=== PATIENT | male | born 1945 | race Caucasian/White ===

== ENCOUNTER 2017-04-15 08:05 | Outpatient (CLI) | payer MEDICARE, OTHER ==
[2015-10-17 22:29] VITALS: BP 143/70
== END 2017-04-15 08:06 ==
LOC: LAB 08:05
PROVIDERS: ATTEND Internal Medicine Gastroenterology
DX: Z79.01 Long term (current) use of anticoagulants (principal); Z01.812 Encounter for preprocedural laboratory examination
CPT/HCPCS: 36415; 85610

== ENCOUNTER 2017-04-15 08:46 | Day surgery (SDC) | payer MEDICARE, OTHER ==
[2015-10-17 22:29] VITALS: BP 143/70
[~2017-04-15 08:46] MED LIST: LACTATED RINGERS 1,000 ML IV.SOLN IV ONE; LIDOCAINE HCL/PF 2% 100 MG/5 ML VIAL IJ ONE; PROPOFOL 200 MG/20 ML VIAL IV ONE; SALINE FLUSH 10 ML DISP.SYRIN IVF ONE
--- NOTE | 2017-04-15 13:44 | GI Report ---
REFERRING PHYSICIAN: Dr. Mason Marroquin DRAFTER CIVIL: Chad Cuellar MD PROCEDURE MEDICATION: Propofol as per anesthesia. INDICATIONS: Patient is a 72-year-old man with a history of a previous fundoplication. 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 He has had a number of episodes of dysphagia for solids and liquids, particularly cold liquids. He denies much heartburn or indigestion. He is on ranitidine b.i.d. He is referred for the above indications. PROCEDURE PERFORMED: Endoscopy with biopsies and esophageal dilatation. PROCEDURE: An Olympus video endoscope was passed through the esophagus without difficulty. The patient has obvious short-segment Phillip's. It comes up at least 3 cm to the GE junction. We did take biopsies. The patient does have a slight tightness at the junction. Retroflexion shows the wrap still in place. The patient has significant bile gastritis in the stomach. Duodenal bulb is open, first and second part of the duodenum were examined. A guidewire was placed in the stomach. Endoscope was removed and a 48-Ethiopian, which is 16 mm, passed with slight resistance. The endoscope was reintroduced. There was a little friability where the stricture was stretched. The patient tolerated the procedure well. FINDINGS: 1. Phillip's esophagus, biopsied. 2. Stricture dilated to a 48-Ethiopian. 3. Fundoplication is still in place. 4. Significant bile gastritis. RECOMMENDATIONS: 1. I recommend he be on a PPI like omeprazole before breakfast and supper rather than the H2 amaris. 2. Always take an antacid at bedtime like Gaviscon because of the bile gastritis. 3. Sleep with the bed elevated. 4. Avoid cold liquids with meals. cc: Dr. Mason TYLER
== END 2017-04-15 08:47 ==
LOC: OPSURG 08:46
PROVIDERS: ATTEND Internal Medicine Gastroenterology
DX: K22.70 Barrett's esophagus without dysplasia (principal); K22.2 Esophageal obstruction; K29.70 Gastritis, unspecified, without bleeding; R13.10 Dysphagia, unspecified
CPT/HCPCS: 43248; J2001; J2704; J7120; S1016

== ENCOUNTER 2017-11-13 15:19 | Emergency (ER) | payer MEDICARE, OTHER ==
--- NOTE | 2017-11-13 15:45 | ED Physician Documentation ---
General Adult - HISTORIAN Historian: patient - HPI Stated Complaint: fall Chief Complaint: General Adult Onset: minutes Timing: still present Severity: moderate Further Comments: yes (Pt is a 72 yo male who tripped and fell while trying to carry another family member's wheelchair down the stairs. Pt fell and sustained multiple abrasions and skin tears on his extremities. Pt denies striking his head or injuring his neck. Pt has no bone or joint pain. Pt is on anticoagulant. Pt has large hematoma on L calf. Tetanus is utd.) - ROS CONST: no problems EYES/ENT: none CVS/RESP: none GI/: none MS/SKIN/LYMPH: other (multiple abrasions/skin tears) - PAST HX Past History: other (Afib, HLD, HTN, CAD, Phillip's Esophagus, chronic neck pain ) Surgeries/Procedures: none Allergies/Adverse Reactions: Allergies Allergy/AdvReac Type Severity Reaction Status Date / Time codeine AdvReac Chest Pain Verified 11/13/17 16:00 meperidine HCl [From Demerol] AdvReac Chest Pain Verified 11/13/17 16:00 Home Medications: Ambulatory Orders Medication Instructions Recorded Aspirin [Nicole] 81 mg PO DAILY 02/24/15 Diphenhydramine HCl [Allergy 25 mg PO DAILY 02/24/15 Relief] Hydroxyzine Pamoate [Vistaril] 25 mg PO PRN PRN 02/24/15 Loperamide HCl [Imodium A-D] 4 mg PO BID 02/24/15 Tramadol HCl [Tramadol HCl] 50 mg PO PM 02/24/15 Warfarin Sodium [Warfarin Sodium] 3 mg PO [id number] 02/24/15 Cholecalciferol [Vitamin D-3] 1 tab PO D 10/17/15 Ranitidine HCl [Ranitidine HCl] 1 tab PO BID 10/17/15 Acetaminophen [Tylenol] 650 mg PO D 11/13/17 Amlodipine/Atorvastatin [Caduet 5 1 each D 11/13/17 mg-10 mg Tablet] Cephalexin [Keflex] 11/13/17 Cephalexin [Keflex] 500 mg D 11/13/17 Cephalexin [Keflex] 500 mg D 11/13/17 Ondansetron HCl Rapdis [Zofran Odt] 4 mg PO Q8 11/13/17 Tamsulosin HCl [Flomax] 0.4 mg D 11/13/17 Tramadol HCl [Ultram] 50 mg D 11/13/17 amLODIPine BESYLATE [Norvasc] 5 mg D 11/13/17 - SOCIAL HX Smoking History: non-smoker - FAMILY HX Family History: No (unk) - VITAL SIGNS Vital Signs: Vital Signs Temp Pulse Resp BP Pulse Ox 143/70 10/17/15 22:27 - REVIEWED ASSESSMENTS Nursing Assessment Reviewed: Yes Vitals Reviewed: Yes Progress - Progress Progress: abrasions cleansed and dressed, topical abx applied. Tetanus is utd. d/c instruction: May apply topical antibiotic such as Neosporin, Bacitracin, or Triple Antibiotic to abrasions twice daily. Apply ice pack to hematoma on L leg. Keep leg elevated as much as possible. General Adult Physical Exam - PHYSICAL EXAM GENERAL APPEARANCE: mild distress EENT: eye inspection normal NECK: normal inspection, supple RESPIRATORY: no resp distress, chest non-tender, breath sounds normal CVS: reg rate & rhythm, heart sounds normal ABDOMEN: soft, no organomegaly, normal bowel sounds BACK: normal inspection, no CVA tenderness SKIN: other (mult abrasions on extremities, L shoulder, L elbow, L forearm; R knee abrasion; L leg abrasion with hematoma, 8 cm, on lateral calf.) EXTREMITIES: normal range of motion, no edema, other (no joint pain; FROM all extremity joints.) NEURO: oriented X3, motor nml, sensation nml Discharge Clincal Impression: fall, with mult extremity abrasions. Referrals: Mason Marroquin [Primary Care Provider] - Condition: Stable Disposition: 01 HOME, SELF-CARE Decision to Admit: NO Decision Time: 16:50
[2017-11-13] MEDS ORDERED: DIPH,PERTUSS(ACELL),TET VAC/PF 0.5 ML DISP.SYRIN IM ONE (15:55)
[2017-11-13 15:57] VITALS: BP 125/86
[2017-11-13 16:25] LABS: BASOPHILS % 0.3 (0.0-1.5); EOSINOPHILS % 2.7 % (0.0-6.8); MEAN CORPUSCULAR HEMOGLOBIN 32.3 pg (28.0-34.0); MEAN CORPUSCULAR VOLUME 91.9 fl (80.0-100.0); MONOCYTES % 5.8 % (0.0-11.0); NEUTROPHILS # 4.6 # k/uL (1.4-7.7)
== END 2017-11-13 16:51 | disposition home or self-care (01) ==
LOC: ED 15:19
DX: S40.212A Abrasion of left shoulder, initial encounter (principal); S50.812A Abrasion of left forearm, initial encounter; S80.812A Abrasion, left lower leg, initial encounter; S80.811A Abrasion, right lower leg, initial encounter; W19.XXXA Unspecified fall, initial encounter; X58.XXXA Exposure to other specified factors, initial encounter; Y92.9 Unspecified place or not applicable; Y93.9 Activity, unspecified; Y99.9 Unspecified external cause status
CPT/HCPCS: 36415; 85025; 85610; 99283